=== PATIENT | female | born 1970 | race Two or more races ===

== ENCOUNTER 2016-08-17 03:48 | Emergency (ER) | payer SELFPAY ==
[2016-08-17] MEDS ORDERED: ACYCLOVIR400 M1 PO (04:20)
[2016-08-17] MEDS ORDERED: NORCO 5-325 TA1 EACH PO (04:20)
[2016-11-11] MEDS ORDERED: PENICILLIN V P500 M1 PO (22:30)
== END 2016-08-17 04:55 ==
LOC: EDMED 03:48
DX: B02.9 Zoster without complications (principal)